=== PATIENT | female | born 1980 | race Two or more races ===

== ENCOUNTER 2025-03-22 12:56 | Emergency (ER) | payer BC ==
[~2025-03-22] VITALS: Ht 167.6 cm; Wt 79.4 kg
[2025-03-22 13:01] VITALS: BP 104/62; TEMP 98.2; O2SAT 100
[2025-03-22] MEDS ORDERED: IBUP-1490 PO (13:20)
== END 2025-03-22 13:41 | disposition home or self-care (01) ==
LOC: ER 13:04
DX: J02.8 Acute pharyngitis due to other specified organisms (principal); B97.89 Other viral agents as the cause of diseases classified elsewhere